=== PATIENT | female | born 1975 | race Caucasian/White ===

== ENCOUNTER 2016-11-11 | Emergency (ER) | payer OTHER | END 2016-11-11 13:10 | disposition left against medical advice (07) | DX: Z53.21 Procedure and treatment not carried out due to patient leaving prior to being seen by health care provider (principal) | CPT/HCPCS: 93005 ==

== ENCOUNTER 2021-03-31 20:09 | Emergency (ER) | payer OTHER | END 2021-03-31 22:50 | disposition home or self-care (01) | LOC: ER1 20:09 | DX: U07.1 COVID-19 (principal); I10 Essential (primary) hypertension; Z79.899 Other long term (current) drug therapy | CPT/HCPCS: 0240U; 99284 ==